=== PATIENT | male | born 1950 | race Caucasian/White ===

== ENCOUNTER 2022-08-05 07:31 | Outpatient (CLI) | payer MEDICARE, SELFPAY ==
--- NOTE | 2022-08-05 07:41 | ECHO_ITS ---
Patient Info Name: Zac Noe Age: 72 years : 1950 Gender: Male Ht: 72 in Wt: 183 lbs BSA: 2.06 m2 HR: 77 bpm BP: 137 / 77 mmHg Technical Quality: Good Exam Date: 08/05/2022 7:52 AM Exam Location: [facility] Patient Status: Outpatient Admit Date: 08/05/2022 Staff Ordering Physician: Kayla Matias DO Tire Manager: Nanette Childers RDCS Attending Provider: Kayla Matias DO Referring Physician: Florencio ROBLERO; Exam Type: CA echo doppler color flow Study Info Indications R01.1 - Cardiac murmur, unspecified Complete two-dimensional, color flow and Doppler transthoracic echocardiogram is performed. Summary 1. Complete two-dimensional, color flow and Doppler transthoracic echocardiogram is performed. 2. Left ventricular chamber dimension is normal. 3. Left ventricular systolic function is normal, estimated at 60-65%. 4. There is mildly increased left ventricular wall thickness. 5. The left ventricular diastolic function is grade I diastolic dysfunction. 6. E/e' 8 is minimally elevated. 7. Global longitudinal strain is slightly abnormal at -16.9%. 8. Left atrial chamber dimension is mildly enlarged. 9. There is moderate aortic valve sclerosis. 10. There is mild aortic valve stenosis with a peak velocity of 191 cm/s, mean gradient of 8 mmHg, and aortic valve area of 1.6 cm2. 11. There is trace aortic valve regurgitation. 12. No pulmonary hypertension, estimated pulmonary arterial systolic pressure is 20 mmHg. Left Ventricle E/e' 8 is minimally elevated. Global longitudinal strain is slightly abnormal at -16.9%. Left ventricular chamber dimension is normal. Left ventricular systolic function is normal, estimated at 60-65%. There is mildly increased left ventricular wall thickness. The left ventricular diastolic function is grade I diastolic dysfunction. Right Ventricle Right ventricular chamber dimension is normal. Right ventricular systolic function is normal. Left Atria Left atrial chamber dimension is mildly enlarged. Right Atria Right atrial chamber dimension is normal. Aortic Valve The aortic valve is trileaflet. There is moderate aortic valve sclerosis. There is mild aortic valve stenosis with a peak velocity of 191 cm/s, mean gradient of 8 mmHg, and aortic valve area of 1.6 cm2. There is trace aortic valve regurgitation. Pulmonic Valve There is no pulmonic regurgitation. Mitral Valve There is no mitral valve stenosis. There is no mitral valve regurgitation. Tricuspid Valve There is no tricuspid valve regurgitation. No pulmonary hypertension, estimated pulmonary arterial systolic pressure is 20 mmHg. Pericardium/Pleural There is no pericardial effusion. Inferior Vena Cava Normal inferior vena cava with >50% collapse upon inspiration consistent with normal right atrial pressure, 5 mmHg. Aorta The aortic root size at the sinus of Valsalva is normal. Left Ventricular Outflow Tract Name Value Normal LVOT 2D LVOT Diameter 2.0 cm LVOT Doppler LVOT Peak Gradient 3 mmHg LVOT Mean Gradient 2 mmHg
== END 2022-08-05 07:32 | disposition home or self-care (01) ==
PROVIDERS: PCP Family Medicine; Visit Provider Family Medicine
DX: R01.1 Cardiac murmur, unspecified (principal); I35.8 Other nonrheumatic aortic valve disorders
CPT/HCPCS: 93306

== ENCOUNTER 2023-08-29 08:06 | Outpatient (CLI) | payer MEDICARE, SELFPAY ==
--- NOTE | ~2023-08-29 | US_ITS ---
EXAMINATION: US arterial ankle brachial ind DATE: 08/29/2023 08:55 INDICATION: Diminished dorsalis pedis pulses TECHNIQUE: Segmental pressures and plethysmographic and Doppler waveforms of the brachial and lower e xtremity arteries were obtained. COMPARISON: None. FINDINGS: Right and left brachial artery pressures of 138 mm Hg and 147 mm Hg, respectively, are concordant (no rmal difference <= 30 mmHg). The right ankle-brachial index (MICHAEL) is 1.27 (normal >= 0.9-1.0). The right great toe-brachial index (TBI) is 0.73 (normal >= 0.65). Arterial Doppler waveforms are biphasic with brisk systolic upstrokes at both right posterior tibial and dorsalis pedis arteries. The left MICHAEL is 1.27. The left TBI is 0.75. Arterial Doppler waveforms are biphasic with brisk systol ic upstrokes at both left posterior tibial and dorsalis pedis arteries. IMPRESSION: 1. No significant arterial occlusive disease to either lower limb with normal bilateral ABIs and TBIs . Reviewed, dictated and finalized at location A. R SAW MECHANIC IMPRESSION: 1. No significant arterial occlusive disease to either lower limb with normal b ilateral ABIs and TBIs.
== END 2023-08-29 08:07 | disposition home or self-care (01) ==
PROVIDERS: PCP Family Medicine; Visit Provider Family Medicine
DX: R09.89 Other specified symptoms and signs involving the circulatory and respiratory systems (principal)
CPT/HCPCS: 93922

== ENCOUNTER 2024-02-19 13:20 | Emergency (ER) | payer MEDICARE, SELFPAY ==
--- NOTE | ~2024-02-19 | CT_ITS ---
EXAMINATION: CTA chest PE abdomen pel DATE: 02/19/2024 16:04 INDICATION: Chest pain. Shortness of breath. Prostate cancer. Abdominal distention. TECHNIQUE: Computed tomography angiography (CTA) of the chest was performed with 100 mL Omnipaque-350 intravenous contrast timed to evaluate the pulmonary arteries. Coronal maximum intensity projection 3D-reconstructions were created by the technologist. Computed tomography (CT) of the abdomen and pelv is was performed with intravenous contrast. Automated exposure control and iterative reconstruction t echnique were employed. The dose-length product was 1175.14 mGy-cm. COMPARISON: CT chest 02/10/2006 FINDINGS: CTA chest: The lungs demonstrate mild atelectasis. Calcified right hilar and mediastinal lymph nodes are consistent with old granulomatous disease. No pleural effusion. The heart size is normal. No marilee cardial effusion. There is 11 mm nodule in left thyroid lobe, likely not clinically significant. Ther e is no pulmonary embolus. There is mild thoracic spondylosis. CT abdomen and pelvis: The liver, gallbladder, and pancreas are normal. Calcifications in the spleen are consistent with old granulomatous disease. The adrenal glands are normal. There are cysts in the kidneys measuring up to 14 mm on the right. There is a 4 mm stone in proximal left ureter with mild l eft hydronephrosis. The prostate is mildly enlarged. There are brachytherapy seeds in the prostate. T he appendix is normal. There are no dilated loops of bowel. There are no pathologically enlarged lymp h nodes. There is no free intraperitoneal fluid. There are bilateral inguinal hernias containing fat. There is severe lumbar spondylosis. IMPRESSION: 1. No pulmonary embolus. 2. 4 mm stone in proximal left ureter with mild left hydronephrosis. Reviewed, dictated and finalized at location A.
--- NOTE | ~2024-02-19 | XR_ITS ---
EXAMINATION: XR chest 2V 02/19/2024 14:31 INDICATION: Shortness of breath PROCEDURE: 2 view chest COMPARISON: 02/10/2006 FINDINGS: The lungs are clear. The cardiomediastinal silhouette is within normal limits. There are no pleural effusions. There is no pneumothorax suspected. IMPRESSION: 1: NO ACUTE CARDIOPULMONARY DISEASE. Reviewed, dictated and finalized at location B.
--- NOTE | 2024-02-19 13:23 | ECG_ITS ---
Test Date: 2024-02-19 13:27:04 Measurements Intervals [place] Rate: 92 P: 64 [place]: 171 QRS: -39 QRSD: 89 T: 67 QT: 364 QTc: 452 Interpretive Statements SINUS RHYTHM MARKED LEFT AXIS DEVIATION [QRS AXIS < -30] NONSPECIFIC T-WAVE ABNORMALITY ABNORMAL ECG No previous ECG available for comparison Electronically Signed On 02-19-2024 13:29:42 CDT by Ulises Chow M.D.
[2024-02-19 13:26] VITALS: BP 154/83; PULSE 90; RESP 16; TEMP 36.8; O2SAT 90
[2024-02-19 13:32] VITALS: BP 121/63; PULSE 102; PULSE 94; RESP 15; O2SAT 97; O2SAT 98
--- NOTE | 2024-02-19 13:37 | ED.SOB ---
HPI - SOB/Dyspnea General Chief Complaint: Shortness of Breath/Dyspnea Stated Complaint: sob Time Seen by Provider: 02/19/24 13:35 Source: patient Mode of arrival: ambulatory Limitations: no limitations History of Present Illness HPI Narrative: This is a 73-year-old male that presents to the emergency department for dyspnea. Ongoing since yesterday. Worse with exertion and lying flat. Reports history of prostate cancer. He recently finished radiation treatments. Reports pleuritic chest pain. Reports his abdomen feels distended. Denies fever, cough, lower extremity edema. Related Data Home Medications Medication Instructions Recorded Confirmed finasteride 5 mg tablet 5 mg PO DAILY 08/21/23 01/22/24 tamsulosin 0.4 mg capsule 0.4 mg PO QHS 01/22/24 01/22/24 Allergies Allergy/AdvReac Type Severity Reaction Status Date / Time pregabalin Allergy Severe BREATHING Verified 02/19/24 13:35 DIFFICULTY fluoxetine Allergy Unknown Nausea Verified 02/19/24 13:35 Review of Systems Review of Systems: CONSTITUTIONAL: Denies fever CARDIOVASCULAR: Reports chest pain. Denies edema. RESPIRATORY: Reports dyspnea. GASTROINTESTINAL: Reports abdominal pain All systems reviewed & are unremarkable except as noted in HPI and below PMFSH Past Medical History Medical History (Updated 02/19/24 @ 18:09 by Radha Pal PA-C) Cataract Cervical radiculopathy due to degenerative joint disease of spine Hypertension Mixed hyperlipidemia Prostate cancer Type 2 diabetes mellitus with hyperglycemia Vitiligo Surgical History Surgical History History of cataract removal with insertion of prosthetic lens Family History Family History Mother Family history of cardiovascular disease Cerebrovascular accident Social History Social History Social History: Caffeine-soda Smoking status: Never smoker Alcohol intake: never Do You Feel Safe in your Home?: Yes Lack of Transportation: No Lack of Food: Never True Current Housing: I Have Housing Concerned About Future Housing: No Difficulty Paying Gas/Electric Bills: No Difficulty Paying for Meds: No Currently Unemployed: No Education: High School Diploma/GED Difficulty w/ Childcare or Family Care: No Exam Narrative: GENERAL: Well-appearing, well-nourished, and in no acute distress. HEAD: Normocephalic, atraumatic. EYES: EOMI. NECK: Supple. No adenopathy or masses. CHEST: Clear to auscultation. No respiratory distress. No wheezes rales or rhonchi HEART: Regular rate and rhythm. No murmur heard. Normal peripheral pulses. ABDOMEN: Soft, nontender, nondistended, normal active bowel sounds. EXTREMITIES: Normal range of motion. No edema. SKIN: Warm, dry, no rash. NEURO: No focal deficits. Alert and oriented x3. PSYCH: Normal mood and affect Course Course Emergency Course: Patient and family updated on workup and agree with plan of care Vital Signs Vital signs: Vital Signs Temperature 98.2 F 02/19/24 13:26 Pulse Rate 90 02/19/24 13:26 Respiratory Rate 16 02/19/24 13:26 Blood Pressure 154/83 H 02/19/24 13:26 Pulse Oximetry 90 02/19/24 13:26 Temperature 98.2 F 02/19/24 13:26 Pulse Rate 90 02/19/24 15:01 Respiratory Rate 13 02/19/24 15:01 Blood Pressure 122/67 02/19/24 15:01 Pulse Oximetry 97 02/19/24 15:01 Oxygen Delivery Room Air 02/19/24 13:32 MDM - SOB/Dyspnea MDM Narrative Medical decision making narrative: Patient presents to the ER for shortness of breath, also endorsing abdominal discomfort. He is afebrile and nontoxic appearing. His vitals are stable. CBC without leukocytosis. Hemoglobin appears stable. Metabolic panel with mild transaminitis. Lipase is normal. Urine with RBCs. No evidence of infection. CTA chest with PE
[2024-02-19 13:46] LABS: Basophils Percent Auto 0.2 % (0.2-1.2); Eosinophils Absolute Auto 0.1 K/mm3 (0-0.3); Eosinophils Percent Auto 1.9 % (0-4.4); Hematocrit 38.3 % (42.0-52.0); Hemoglobin 13.5 g/dL (14.0-18.0); Immature Granulocyte Absolute 0.03 K/mm3 (0.00-0.031); Immature Granulocyte Percent A 0.6 % (0-0.5); Immature Platelet Fraction Pct 7.2 % (0.9-11.2); Lymphocytes Absolute Auto 0.49 K/mm3 (0.9-3.2); Lymphocytes Percent Auto 9.3 % (18.3-44.2); Mean Corpuscular HGB Conc 35.2 g/dl (32-36); Mean Corpuscular Hemoglobin 32.2 pg (26-34); Mean Corpuscular Volume 91.4 fl (80-100); Mean Platelet Volume 11.3 fl (7.4-10.4); Monocytes Absolute Auto 0.5 K/mm3 (0.1-0.6); Monocytes Percent Auto 8.9 % (2.6-8.5); Neutrophils Absolute Auto 4.2 K/mm3 (1.3-6.7); Neutrophils Percent Auto 79.1 % (45.5-73.1); Platelet Count Result 133 k/mm3 (150-375); Red Blood Count 4.19 M/mm3 (4.6-6.20); Red Cell Distribution Width 12.9 % (11.5-14.5); White Blood Count 5.3 K/mm3 (4.5-10.0)
[2024-02-19 13:55] LABS: Alanine Aminotransferase 93 U/L (6-50); Albumin Level 4.1 g/dL (3.5-5.1); Alkaline Phosphatase 122 U/L (38-126); Anion Gap 12 mmol/L (4-12); Aspartate Amino Transferase 62 U/L (17-59); Bilirubin,Total 0.6 mg/dL (0.2-1.3); Blood Urea Nitrogen 19 mg/dL (9-20); Calcium 9.4 mg/dL (8.4-10.2); Carbon Dioxide 21 mmol/L (22-30); Chloride 103 mmol/L (98-107); Estimated CRCL calculation 64 ml/min; Estimated Glomerular Filt Rate > 60; Glucose 275 mg/dL (65-110); INR 0.9; Potassium 4.2 mmol/L (3.4-5.0); Prothrombin Time 12.5 Seconds (11.1-14.7); Sodium 136 mmol/L (137-145)
[2024-02-19 13:56] LABS: Partial Thromboplastin Time 27.8 Seconds (22.3-36.8)
[2024-02-19 14:02] LABS: D Dimer 0.36 ug/mL (<0.48)
[2024-02-19 14:22] LABS: NT Pro B Type Natriuretic Pept 42 pg/mL (19.9-100); Troponin I < 0.012 ng/mL (0.000-0.034)
[2024-02-19 14:30] VITALS: BP 144/73; PULSE 89; RESP 13; O2SAT 97
[2024-02-19 15:01] VITALS: BP 122/67; PULSE 90; RESP 13; O2SAT 97
[2024-02-19 15:08] LABS: Lipase 87 U/L (23-300)
[2024-02-19 15:16] LABS: Influenza A QL RT-PCR Negative (Negative); Influenza B QL RT-PCR Negative (Negative); RSV RNA, RT-PCR Negative (Negative); SARS-CoV-2 RNA PCR Negative (Negative)
[2024-02-19 17:01] VITALS: BP 115/74; PULSE 96; RESP 17; O2SAT 97
[2024-02-19 17:48] LABS: Add Urine Microscopic? YES; Appearance Urine Clear (Clear); Bacteria Urine None Seen /hpf; Bilirubin Urine Negative (Negative); Blood Urine 3+ (Negative); Color Urine Yellow (Yellow); Glucose Urine UA 3+ mg/dL (Negative); Ketones Urine Negative (Negative); Leukocyte Esterase Ur Negative LEU/UL (Negative); Nitrate Urine Negative (Negative); Non Pathogenic Casts 0-2; Protein Urine Trace mg/dL (Negative); RBC Urine 21-50 /hpf (0-2); Specific Grav Ur 1.031 (1.001-1.035); Squamous Epithelial Cell Urine None Seen /hpf (Few); Urobilinogen Urine 0.2 mg/dL (<2.0); WBC Urine 0-5 /hpf (0-3); pH Urine 5.5 (5.0-9.0)
== END 2024-02-19 18:59 | disposition home or self-care (01) ==
PROVIDERS: Emergency Medicine; Emergency Provider Physician Assistant; PCP Family Medicine
DX: R06.02 Shortness of breath (principal); N13.2 Hydronephrosis with renal and ureteral calculous obstruction; Z20.822 Contact with and (suspected) exposure to COVID-19; C61 Malignant neoplasm of prostate; E78.2 Mixed hyperlipidemia; M47.22 Other spondylosis with radiculopathy, cervical region; E11.9 Type 2 diabetes mellitus without complications; L80 Vitiligo; Z96.1 Presence of intraocular lens; Z98.49 Cataract extraction status, unspecified eye; R94.31 Abnormal electrocardiogram [ECG] [EKG]; Z79.84 Long term (current) use of oral hypoglycemic drugs; Z79.899 Other long term (current) drug therapy
CPT/HCPCS: 36415; 71046; 71275; 74177; 80053; 81001; 83690; 83880; 84484; 85025; 85055; 85380; 85610; 85730; 87637; 93005; 99284; Q9967

== ENCOUNTER 2024-02-25 01:23 | Emergency (ER) | payer MEDICARE, SELFPAY ==
[2024-02-25 01:26] VITALS: BP 142/68; PULSE 91; RESP 20; TEMP 36.3; O2SAT 99
[2024-02-25 02:16] VITALS: BP 142/81; PULSE 87; RESP 16; TEMP 36.6; O2SAT 99
[2024-02-25 02:20] LABS: Basophils Percent Auto 0.5 % (0.2-1.2); Eosinophils Percent Auto 0.6 % (0-4.4); Hematocrit 39.2 % (42.0-52.0); Hemoglobin 13.5 g/dL (14.0-18.0); Immature Granulocyte Absolute 0.06 K/mm3 (0.00-0.031); Immature Granulocyte Percent A 0.9 % (0-0.5); Lymphocytes Absolute Auto 0.34 K/mm3 (0.9-3.2); Lymphocytes Percent Auto 5.3 % (18.3-44.2); Mean Corpuscular HGB Conc 34.4 g/dl (32-36); Mean Corpuscular Hemoglobin 31.6 pg (26-34); Mean Corpuscular Volume 91.8 fl (80-100); Mean Platelet Volume 10.7 fl (7.4-10.4); Monocytes Absolute Auto 0.4 K/mm3 (0.1-0.6); Monocytes Percent Auto 6.1 % (2.6-8.5); Neutrophils Absolute Auto 5.5 K/mm3 (1.3-6.7); Neutrophils Percent Auto 86.6 % (45.5-73.1); Platelet Count Result 129 k/mm3 (150-375); Red Blood Count 4.27 M/mm3 (4.6-6.20); Red Cell Distribution Width 12.9 % (11.5-14.5); White Blood Count 6.4 K/mm3 (4.5-10.0)
[2024-02-25 02:28] LABS: Alanine Aminotransferase 50 U/L (6-50); Albumin Level 4.4 g/dL (3.5-5.1); Alkaline Phosphatase 118 U/L (38-126); Anion Gap 14 mmol/L (4-12); Aspartate Amino Transferase 37 U/L (17-59); Bilirubin,Total 0.8 mg/dL (0.2-1.3); Blood Urea Nitrogen 23 mg/dL (9-20); Calcium 9.3 mg/dL (8.4-10.2); Carbon Dioxide 23 mmol/L (22-30); Chloride 96 mmol/L (98-107); Estimated CRCL calculation 45 ml/min; Estimated Glomerular Filt Rate 46; Glucose 366 mg/dL (65-110); Lipase 134 U/L (23-300); Potassium 4.2 mmol/L (3.4-5.0); Sodium 133 mmol/L (137-145)
[2024-02-25 02:38] LABS: Add Urine Microscopic? YES; Appearance Urine Turbid (Clear); Bacteria Urine None Seen /hpf; Bilirubin Urine Negative (Negative); Blood Urine 3+ (Negative); Color Urine Yellow (Yellow); Glucose Urine UA 3+ mg/dL (Negative); Ketones Urine Negative (Negative); Leukocyte Esterase Ur Negative LEU/UL (Negative); Need Manual Microscopic Reviewed; Nitrate Urine Negative (Negative); Protein Urine 1+ mg/dL (Negative); RBC Urine 51-100 /hpf (0-2); Specific Grav Ur 1.033 (1.001-1.035); Squamous Epithelial Cell Urine None Seen /hpf (Few); Uric Acid Crystals Urine Present /hpf; Urobilinogen Urine 0.2 mg/dL (<2.0); WBC Urine 0-5 /hpf (0-3)
[2024-02-25 03:24] VITALS: BP 138/72; PULSE 93; RESP 16; TEMP 36.4; O2SAT 95
--- NOTE | 2024-02-25 05:08 | ED.GENADULT ---
HPI - General Adult General Chief complaint: Abdominal Pain Stated complaint: abd pain Time Seen by Provider: 02/25/24 01:52 History of Present Illness HPI narrative: This is a 73-year-old male presenting with left flank and left lower quadrant pain. Pain started this evening in his intense. Patient was seen in the ED last week and an incidental 4mm kidney stone was found however was not bothering him at that time. Now he is having pain. Patient is having increased urinary urgency but no dysuria. No fevers. Urologist Dr. ramirez Related Data Home Medications Medication Instructions Recorded Confirmed finasteride 5 mg tablet 5 mg PO DAILY 08/21/23 01/22/24 tamsulosin 0.4 mg capsule 0.4 mg PO QHS 01/22/24 01/22/24 Allergies Allergy/AdvReac Type Severity Reaction Status Date / Time pregabalin Allergy Severe BREATHING Verified 02/19/24 13:35 DIFFICULTY fluoxetine Allergy Unknown Nausea Verified 02/19/24 13:35 [facility] Past Medical History Medical History (Updated 02/25/24 @ 05:14 by Kurt Feng MD) Cataract Cervical radiculopathy due to degenerative joint disease of spine Hypertension Mixed hyperlipidemia Prostate cancer Type 2 diabetes mellitus with hyperglycemia Vitiligo Surgical History Surgical History History of cataract removal with insertion of prosthetic lens Family History Family History Mother Family history of cardiovascular disease Cerebrovascular accident Social History Social History Social History: Caffeine-soda Smoking status: Never smoker Alcohol intake: never Do You Feel Safe in your Home?: Yes Lack of Transportation: No Lack of Food: Never True Current Housing: I Have Housing Concerned About Future Housing: No Difficulty Paying Gas/Electric Bills: No Difficulty Paying for Meds: No Currently Unemployed: No Education: High School Diploma/GED Difficulty w/ Childcare or Family Care: No Exam Narrative: APPEARANCE: No apparent distress. Appears uncomfortable Head: atraumatic. EYES: EOMI, NOSE: Atraumatic NECK: Trachea midline RESPIRATORY: No increased rate of breathing CARDIOVASCULAR: RRR, ABDOMINAL: Non-distended soft nontender no guarding rebound, no CVA tenderness MUSCULOSKELETAl: No obvious deformities NEURO: Alert. Moving 4/4 extremities SKIN:: Warm, dry. Normal color PSYCHIATRIC: Normal affect Course Vital Signs Vital signs: Vital Signs Temperature 97.4 F L 02/25/24 01:26 Pulse Rate 91 02/25/24 01:26 Respiratory Rate 20 02/25/24 01:26 Blood Pressure 142/68 H 02/25/24 01:26 Pulse Oximetry 99 02/25/24 01:26 Oxygen Delivery Room Air 02/25/24 01:26 Temperature 97.6 F 02/25/24 03:24 Pulse Rate 93 02/25/24 03:24 Respiratory Rate 16 02/25/24 03:24 Blood Pressure 138/72 02/25/24 03:24 Pulse Oximetry 95 02/25/24 03:24 Oxygen Delivery Room Air 02/25/24 01:26 Medical Decision Making MDM Narrative Medical decision making narrative: -Course: 73-year-old male presenting with left flank pain and a known kidney stone. Pain was controlled in ED. Urine not indicative infection. Patient given appropriate medications and instructed to follow-up with his urologist. Given return precautions. Vital Signs Vital Signs: Vital Signs Temperature 97.4 F L 02/25/24 01:26 Pulse Rate 91 02/25/24 01:26 Respiratory Rate 20 02/25/24 01:26 Blood Pressure 142/68 H 02/25/24 01:26 Pulse Oximetry 99 02/25/24 01:26 Oxygen Delivery Room Air 02/25/24 01:26 Temperature 97.6 F 02/25/24 03:24 Pulse Rate 93 02/25/24 03:24 Respiratory Rate 16 02/25/24 03:24 Blood Pressure 138/72 02/25/24 03:24 Pulse Oximetry 95 02/25/24 03:24 Oxygen Delivery Room Air 02/25/24 01:26 Lab Data 02/25/24 02
[2024-02-25] MEDS: HYDROmorphone HCL INJ (*CRX) 1 MG/ML SYR 0.5 MG IV PUSH (05:15)
[2024-02-25] MEDS: ONDANSETRON INJ 4 MG/2 ML VIAL IV PUSH (05:15)
[2024-02-25] MEDS: KETOROLAC 15 MG/ML VIAL (*BKC) IV PUSH (05:16)
[2024-02-25 05:24] VITALS: BP 142/79; PULSE 92; RESP 19; TEMP 36.6; O2SAT 99
== END 2024-02-25 05:25 | disposition home or self-care (01) ==
PROVIDERS: Emergency Provider Emergency Medicine; PCP Family Medicine
DX: N20.0 Calculus of kidney (principal); I10 Essential (primary) hypertension; E78.2 Mixed hyperlipidemia; E11.9 Type 2 diabetes mellitus without complications; Z85.46 Personal history of malignant neoplasm of prostate
CPT/HCPCS: 36415; 80053; 81001; 83690; 85025; 85055; 96374; 96375; 99285; J1170; J1885; J2405

== ENCOUNTER 2024-12-23 14:20 | Outpatient (CLI) | payer MEDICARE, SELFPAY ==
--- NOTE | ~2024-12-23 | XR_ITS ---
HISTORY: 1 month of worsening pain, decreased ROM COMPARISON: None TECHNIQUE: 4 views of the left shoulder were performed FINDINGS: No acute fracture. The glenohumeral and acromioclavicular joint space is fairly well maintained The visualized portion of the adjacent left lung is clear. The humeral head is well seated within the glenoid fossa. IMPRESSION: No acute fracture or anterior dislocation. Further evaluation with MRI is suggested, if the patient is clinically able. Reviewed, dictated and finalized at location A.
== END 2024-12-23 14:21 | disposition home or self-care (01) ==
LOC: GOSHIMG 14:20
PROVIDERS: PCP Family Medicine; Visit Provider Family Medicine
DX: M25.512 Pain in left shoulder (principal)
CPT/HCPCS: 73030

== ENCOUNTER 2025-02-14 09:22 | Emergency (ER) | payer MEDICARE, SELFPAY ==
--- NOTE | ~2025-02-14 | XR_ITS ---
XR knee RT 3V 02/14/2025 10:59 Indication: Status post fall. Knee pain. Procedure: 3 views right knee Comparison: No prior studies for comparison. Findings: There is anatomic alignment. No fracture, subluxation or dislocation. No significant joint space narrowing. No joint effusion. Impression: 1: No acute fracture. Reviewed, dictated and finalized at location O. Impression: 1: No acute fracture.
[2025-02-14 09:40] VITALS: BP 136/59; PULSE 79; RESP 16; TEMP 36.6; O2SAT 100
--- OUTSIDE RECORDS SUMMARY | 2025-02-14 09:56 | XMS_ITS | Clinical Summary ---
Author Organization [facility] Address [address] [place] [id number] Care Team Providers Care Oxyacetylene Torch Operator Name Role Phone Unavailable Primary Care Provider Unavailabl e Social History Tobacco Use Types Packs/Day Years Used Date Smoking Tobacco: Never Assessed Sex and Gender Information Value Date Recorded Sex Assigned at Not on file Legal Sex Male 4:20 PM CDT Gender Identity Not on file Sexual Orientation Not on file Plan of Treatment Health Maintenance Due Date Last Done Comments Colorectal Cancer Screening Colonoscopy (10 Years) 1950 Hepatitis C 1970 DTaP, Tdap and Td Vaccines ( 1 - Tdap) 1971 Pneumococcal Vaccine: 50+ Ye ars (1 of 1 - PCV) 2002 Zoster Vaccines (1 of 2) 2002 COVID-19 Vaccine ( - 2023-2 5 season) 2024 RSV Immunization or 60+ Years (1 - 1-dose 75+ series) 2027 Meningococcal B Vaccine Aged Out No l onger eligible based on patient's age to complete this topic Meningococcal Vaccine Aged Out No jules shayne eligible based on patient's age to complete this topic RSV Immunizations Under 20 Months Aged Out No longer eligible based on patient's age to complete this topic
[2025-02-14 10:33] VITALS: O2SAT 99
[2025-02-14 10:34] VITALS: BP 141/74; O2SAT 96
--- NOTE | 2025-02-14 10:42 | ED.FALL ---
HPI - Fall General Chief Complaint: Fall Stated Complaint: fall off ladder, 12-14ft Time Seen by Provider: 02/14/25 10:35 History of Present Illness HPI Narrative: 72-year-old male presents ER complaining of right knee pain following a fall. Patient states yesterday he was on a ladder when it spontaneously collapsed, causing him to land on his right knee. Patient was able to bear weight and ambulate feeling the injury. States the injury occurred yesterday. No other complaints Related Data Home Medications ?Medication ?Instructions ?Recorded ?Confirmed ?Last Taken ?Type finasteride 5 mg tablet 5 mg PO DAILY 08/21/23 12/23/24 Unknown History Allergies Allergy/AdvReac Type Severity Reaction Status Date / Time pregabalin Allergy Severe BREATHING Verified 02/14/25 10:57 DIFFICULTY fluoxetine Allergy Unknown Nausea Verified 02/14/25 10:57 Review of Systems Review of Systems: All systems reviewed & are unremarkable except as noted in HPI and below PMFSH Past Medical History Medical History Type 2 diabetes mellitus with hyperglycemia Prostate cancer Cataract Hypertension Cervical radiculopathy due to degenerative joint disease of spine Mixed hyperlipidemia Vitiligo Surgical History Surgical History History of cataract removal with insertion of prosthetic lens Family History Family History Mother Family history of cardiovascular disease Cerebrovascular accident Social History Social History Social History: Caffeine-soda Smoking status: Never smoker Alcohol intake: never Do You Feel Safe in your Home?: Yes Lack of Transportation: No Lack of Food: Never True Current Housing: I Have Housing Concerned About Future Housing: No Difficulty Paying Gas/Electric Bills: No Difficulty Paying for Meds: No Currently Unemployed: No Education: High School Diploma/GED Difficulty w/ Childcare or Family Care: No Exam Const: General: healthy appearing, no acute distress and alert Nutritional Appearance: well nourished Orientation/consciousness: patient oriented x3 Limitations: no limitations HENMT: Head: normal to inspection Face and sinus: normal facial exam Eyes: Conjunctivae: conjunctivae normal Pupils: Equal, round and reactive pupils present EOM: EOMs intact bilaterally Neck: Neck: normal visual inspection Chest: Chest palpation & inspection: normal inspection of the chest Resp: Effort & Inspection: normal respiratory effort Auscultation: clear to auscultation bilaterally Cardio: Rate: regular rate Rhythm: regular rhythm GI: GI Palp: Yes Soft to palpation Auscultation: normal bowel sounds Skin: General skin exam: normal color Neuro: General: patient oriented x3, moves all extremities and CN's II-XI intact bilaterally Gait exam (Neuro): Normal gait present Extrem: Other: Right knee: Tenderness to lateral joint line extending into proximal tibia. No soft tissue swelling, no ecchymosis, full range of motion of knee. No joint laxity Psych: Mental Status: mental status grossly normal Affect: normal affect Attitude: cooperative Course Vital Signs Vital signs: Vital Signs Temperature 36.6 C 02/14/25 09:40 Pulse Rate 79 02/14/25 09:40 Respiratory Rate 16 02/14/25 09:40 Blood Pressure 136/59 L 02/14/25 09:40 Pulse Oximetry 100 02/14/25 09:40 Oxygen Delivery Room Air 02/14/25 09:40 Temperature 36.6 C 02/14/25 09:40 Pulse Rate 79 02/14/25 09:40 Respiratory Rate 16 02/14/25 09:40 Blood Pressure 133/76 02/14/25 11:01 Pulse Oximetry 98 02/14/25 11:01 Oxygen Delivery Room Air 02/14/25 09:40 MDM - Fall MDM Narrative Medical decision making narrative: 9 to male presents ER complaining of right knee pain following mechanical GL of from a ladder. Imaging of the right knee feels demonstrate any acute bony abnormality. Differential diagnosis includes fracture, dislocation, subluxation, contusion, ligamentous injury. Exam findings were consistent with a knee contusion. Will pain in discharge patient home in stable condition with referral to our Orthopedics. Discharge Plan Discharge Clinical Impression: Contusion of knee, right Qualifiers: Encounter type: initial encounter Qualified Code(s): S80.01XA - Contusion of right knee, initial encounter Patient Disposition: Home Condition: Stable Instructions: Antibiotic Form, Contusion in Adults (ED) Patient Language: Kinyarwanda Prescriptions: No Action finasteride 5 mg tablet 5 mg PO DAILY ibuprofen 800 mg tablet 800 mg PO TID PRN (Reason: pain) 7 Days Qty: 21 0RF acetaminophen 500 mg tablet 1,000 mg PO TID PRN (Reason: elsa) 7 Days Qty: 42 0RF tamsulosin [Flomax] 0.4 mg capsule 0.4 mg PO DAILY Qty: 30 0RF ondansetron 4 mg tablet,disintegrating 4 mg PO Q8H PRN (Reason: nausea and vomiting) Qty: 30 0RF oxycodone 5 mg tablet 5 mg PO Q4H PRN (Reason: pain) Qty: 14 0RF diazepam 5 mg tablet 5 mg PO BID PRN (Reason: muscle spasm) Qty: 180 1RF ropinirole 3 mg tablet 3 mg PO .COMPLEX Qty: 90 1RF Rx Instructions: 3 mg orally; Take 2 hours before bedtime meloxicam 15 mg tablet See Rx Instructions .ROUTE .COMPLEX Qty: 90 1RF Dose Instruction: TAKE 1 TABLET BY MOUTH EVERY DAY Rx Instructions: TAKE 1 TABLET BY MOUTH EVERY DAY citalopram 40 mg tablet See Rx Instructions .ROUTE .COMPLEX Qty: 45 1RF Dose Instruction: TAKE 1/2 TABLET BY MOUTH DAILY Rx Instructions: TAKE 1/2 TABLET BY MOUTH DAILY atorvastatin 20 mg tablet 20 mg PO DAILY Qty: 90 1RF tramadol 50 mg tablet 50 mg PO Q6H PRN (Reason: pain) Qty: 60 2RF metformin 1,000 mg tablet 1,000 mg PO BIDWMEAL Qty: 180 1RF losartan 50 mg tablet 50 mg PO DAILY Qty: 90 1RF Follow-up/Referrals: Kayla Matias DO [Primary Care Provider, Family Practice] Fortino Metzger MD [Physician, Orthopedics] Time of Disposition: 11:35
[2025-02-14 10:45] VITALS: O2SAT 97
[2025-02-14 11:00] VITALS: O2SAT 100
[2025-02-14 11:01] VITALS: BP 133/76; O2SAT 98
== END 2025-02-14 11:49 | disposition home or self-care (01) ==
PROVIDERS: Emergency Provider Nurse Practitioner Family; PCP Family Medicine
DX: S80.01XA Contusion of right knee, initial encounter (principal); I10 Essential (primary) hypertension; E11.9 Type 2 diabetes mellitus without complications; E78.2 Mixed hyperlipidemia; Z85.46 Personal history of malignant neoplasm of prostate; Z98.49 Cataract extraction status, unspecified eye; Z96.1 Presence of intraocular lens; W11.XXXA Fall on and from ladder, initial encounter; Z79.84 Long term (current) use of oral hypoglycemic drugs; Z79.899 Other long term (current) drug therapy
CPT/HCPCS: 73562; 99283